=== PATIENT | female | born 1980 | race Caucasian/White ===

== ENCOUNTER 2017-03-14 12:57 | Emergency (ER) | payer MEDICAID ==
[~2017-03-14] VITALS: Ht 160 cm; Wt 74.0 kg
[2017-03-14 13:01] VITALS: Ht 160 cm; Wt 74.0 kg
--- NOTE | 2017-03-14 13:37 | ERD ---
ER Documentation Chief Complaint Date/Time DATE: 03/14/17 TIME: 13:29 Chief Complaint RIGHT HAND NUMBNESS AND PAIN TO RIGHT FA, EQUAL DISTRIBUTOR PUBLICATIONS HPI 37-year-old female who presented emergency department for right hand numbness and pain that started this morning. No injury/ Falls. No direct trauma. Denies headache, loss of consciousness, dizziness, blurry vision, changes in vision, photophobia, facial pain, ear pain, throat pain, difficulty swallowing, neck pain, shoulder pain, chest pain, cough, hemoptysis, abdominal pain, back pain, loss of appetite, nausea, vomiting, hematochezia, diarrhea, constipation, urinary symptoms, , the possibility of being , bladder and bowel incontinences, extremity weakness, extremity tenderness, numbness or tingling sensation, difficulty walking, recent travel, recent exposure to illness, recent antibiotic use in the last 3 months, fever, chills. Denies visual/auditory hallucinations/delusions. Not suicidal. Not homicidal. Has the capacity to decide for herself. Lives with her mother. Has good support system at home. Allergy: No known drug allergies. PMH: Anxiety, depression. Family medical history: Denies family history of cardiac before the age of 50, stroke. A with 1 miscarriage. LMP: 03/12/2017 Medications: Zoloft, BuSpar, Ativan. Surgery: Stated that he had a surgery due to his ruptured ovarian cyst. Primary Social History: Works as a nanny. Occasionally drinks alcoholic beverages. Stated that sometimes she uses cocaine. Denies smoking cigarettes ROS All systems reviewed and are negative except as per history of present illness. Allergies Allergies: Coded Allergies: No Known Allergy (Unverified , 03/14/17) PMhx/Soc Medical and Surgical Hx: pt denies Medical Hx, pt denies Surgical Hx Hx Alcohol Use: No Hx Substance Use: No Hx Tobacco Use: No Smoking Status: Never smoker Physical Exam Vitals Vital Signs Date Time Temp Pulse Resp B/P Pulse Ox O2 Delivery O2 Flow Rate FiO2 03/14/17 13:01 98.2 112 18 135/74 98 Physical Exam CONSTITUTIONAL: Well-appearing; well-nourished; in no apparent distress. HEAD: Normocephalic; atraumatic. EYES: Conjunctiva clear, sclera non-icteric, EOM intact. PERRLA. No pain in eye movement. Ears: Hearing intact. EACs clear, TMs non-bulging, non-inflamed, translucent & mobile, ossicles normal appearance, No obstructions, no erythema, no discharges Nose: No obstructions. No polyps. No external lesions. Mucosa non-inflamed. No external lesions, septum and turbinates normal. No rhinorrhea. No discharges. Frontal sinus is non-tender to palpation. Maxillary sinus is non-tender to palpation. MOUTH: Moist mucous membranes, no lesion, no obstructions, no vesicles, no thrush, patent airway Throat: Uvula in midline. Right tonsil is +1 with no erythema, no exudate. Left tonsil is +1 with no erythema, no exudate. Tolerating secretions well. Good gag reflex. Patent airway. Neck: Supple, without lesions, bruits, or adenopathy. No mass. Thyroid non- enlarged and non-tender to palpation. CHEST: Symmetrical chest. Respirations even and not labored. No retractions noted. CARDIOVASCULAR: Normal S1, S2. RRR. No murmurs, gallops. RESPIRATORY: Normal chest excursion with respiration; breath sounds clear and equal bilaterally; no wheezes, rhonchi, or rales. Breathing even and unlabored. Speaking in clear, full, and complete sentences w/ ease. ABDOMEN: Normal bowel sounds normal. Soft, round, non-distended, non-guarding, no tenderness, no rebound, no organomegaly, no masses, no pulsating abdominal mass. No hernia. No peritoneal signs. : No CVA tenderness. BACK: Symmetrical shoulder. Spine is midline without deformity, tenderness. No evidence of trauma or deformity. PELVIS: Stable pelvis. No evidence of trauma or deformity. MUSCULOSKELETAL: Normal gait and station. No misalignment, asymmetry, crepitation, defects, tenderness, masses, effusions, decreased range of motion, instability, atrophy or abnormal strength or tone in the head, neck, spine, ribs , pelvis or extremities. No calf tenderness. NEUROVASCULAR: Distal pulses are present. Pedal pulse are present, equal, and normal. Capillary refills are < 2 seconds. NEUROLOGIC: Alert and oriented x4. Speaks full and clear sentences. Cranial Nerves II-XII normal. Sensation to pain, touch, and proprioception normal. Grossly unremarkable. No neurologic deficits. Romberg test is negative. PSYCHOLOGICAL: The patients mood and manner are appropriate. No hallucinations , delusions. Not SI. Not HI. Has the capacity to decide for self SKIN: Normal for age and ethnicity; warm; dry; good turgor; no apparent lesions or exudates. No rashes, hives, discoloration. Intact. Results 24 hrs Current Medications Medications (Trade) Dose Ordered Sig/[place] Route PRN Reason Start Time Stop Time Status Last Admin Dose Admin Lorazepam (Ativan) 1 mg ONCE ONCE PO 03/14/17 14:00 03/14/17 14:01 DC 03/14/17 13:53 Procedures/MDM Examination: Please see physical examination. Disease process, medical treatment was explained to the patient and family member. They verbalized understanding and agreed with the diagnostic tests, medical treatment, and follow-up care. EKG: Normal sinus rhythm with a ventricular rate of 96 bpm. No evidence of acute myocardial infarction. No evidence of atrial fibrillation. Treatment: Ativan. Re-evaluation: Denies headache, dizziness, blurry vision, neck pain, shoulder pain, chest pain, back pain, abdominal pain, nausea, vomiting. No episode of emesis in the emergency department. Alert and oriented 4. Speaks full and clear sentences. Respirations even and unlabored. Lung sounds clear to auscultation. Active bowel sounds. There is no right upper/right lower/ epigastric/left upper/left lower abdominal tenderness and light and deep palpation. Negative on Rovsings sign. Negative Sharon sign. Able to jump 5 times without developing right-sided abdominal pain. No peritoneal signs. Alert and oriented 4. Speaks full and clear sentences. Respirations even and unlabored. Lung sounds clear to auscultation. Ambulatory with steady gait. No neurovascular deficits. No neurological deficits. Denies visual/auditory hallucination/delusions. Not suicidal. Not homicidal. Has the capacity to decide for herself. Lives with her mother. Has good support system at home. States that she feels much better at this time. Consultation: None. Differential diagnosis: Stroke versus acute myocardial infarction versus anxiety Medical decision makin-year-old female who presented emergency department for right hand numbness and pain that started this morning. No injury/ Falls. No direct trauma. Her symptoms has resolved upon arrival here in the emergency department. Patient's complaint, my physical findings, diagnostic test results, my reevaluation are consistent my final diagnosis of anxiety. Medications prescribed are the following: Ativan. Patient and family member are made aware of the side effects and adverse reactions of the medications prescribed. Instructed on when to seek emergent and medical attention in case allergic/anaphylactic reactions or severe side effects and or adverse reactions to medications. Patient and family member verbalized understanding. Patient instructed Instructed to follow-up with his PCP in 24-48 hours. Instructed to Call 911 for chest pain, shortness of breath. Advised to come back here in ED as soon as possible for severity of symptoms which includes but not limited to: any new symptoms; shortness of breath/difficulty of breathing; cardiovascular changes; severe gastrointestinal symptoms; signs and symptoms of bleeding and or infection; signs of compartment syndrome/neurovascular changes; neurological changes/deficits. Patient and family member verbalized understanding. Upon discharge, patient is alert and oriented x 4, speaks full and clear sentences, denies pain, has no neurological deficits, has no neurovascular deficits, difficulty of breathing. Breathing even and unlabored. Lung sounds are clear to auscultation. Not in distress. Appears comfortable. Ambulatory with steady gait. Appears satisfied with care provided here in ED. Denies visual /auditory hallucination/delusions. Not suicidal. Not homicidal. Has the capacity to decide for herself. Lives with her mother. Has good support system at home. States that she feels much better at this time. Departure Diagnosis: Primary Impression: Numbness Additional Impression: Anxiety Condition: Stable Additional Instructions: Patient instructed Instructed to follow-up with his PCP in 24-48 hours. Instructed to Call 911 for chest pain, shortness of breath. Advised to come back here in ED as soon as possible for severity of symptoms which includes but not limited to: any new symptoms; shortness of breath/difficulty of breathing; cardiovascular changes; severe gastrointestinal symptoms; signs and symptoms of bleeding and or infection; signs of compartment syndrome/neurovascular changes; neurological changes/deficits. Patient and family member verbalized understanding. ИВАН ALVAREZ Mar 14, 2017 13:37 ИВАН ALAVREZ Mar 14, 2017 13:37
[2017-03-14] MEDS ORDERED: LORAZEPAM 1 MG TAB PO ONE (14:00)
[2017-03-14] MEDS ORDERED: LORA1TAB PO (14:10)
== END 2017-03-14 14:40 | disposition home or self-care (01) ==
LOC: FTE 12:57
DX: R20.0 Anesthesia of skin (principal); F41.9 Anxiety disorder, unspecified; M79.641 Pain in right hand
CPT/HCPCS: 93005